=== PATIENT | female | born 1975 | race Caucasian/White ===

== ENCOUNTER 2023-05-31 15:34 | Outpatient (REF) | payer OTHER, SELFPAY ==
--- NOTE | ~2023-05-31 | XR_ITS ---
EXAM: LEFT WRIST X-RAYS CLINICAL INFORMATION: Pain in left wrist. TECHNIQUE: 4 views of the left wrist. FINDINGS: Radiopaque marker placed by the technologist. Mild narrowing of the radiocarpal space. Bone mineralization is normal. Slight cortical step-off at the distal radial aspect of the scaphoid with possibly sclerotic margins may represent a prior fracture versus chronic/degenerative process. Small cystic lucency in the mid body of the scaphoid. Multiple cystic lucencies in the lunate with areas of moderate sclerosis. Mild degenerative changes in the first carpometacarpal joint with joint space narrowing and hypertrophic change. XR/XR wrist LT w scaphoid IMPRESSION: Slight cortical step-off at the distal radial aspect of the scaphoid with possibly sclerotic margins may represent a prior fracture versus chronic/degenerative process. Small cystic lucency in the mid body of the scaphoid. Multiple cystic lucencies in the lunate with areas of moderate sclerosis. Correlation with clinical exam and history recommended to determine further management including possible additional imaging with MRI.
== END 2023-05-31 15:35 | disposition home or self-care (01) ==
LOC: HO.HOSX 15:34
PROVIDERS: PCP Family Medicine; Visit Provider Orthopaedic Surgery
DX: S52.502A Unspecified fracture of the lower end of left radius, initial encounter for closed fracture (principal)
CPT/HCPCS: 73110

== ENCOUNTER 2023-06-22 09:07 | Outpatient (REF) | payer OTHER, SELFPAY ==
--- NOTE | ~2023-06-22 | XR_ITS ---
EXAMINATION: Left rib series CLINICAL INFORMATION: Pain in left wrist COMPARISON: Left wrist series May 2023 TECHNIQUE: 4 views of the left wrist FINDINGS: There is a nondisplaced incomplete transverse fracture through the radial cortex of the metaphysis of the radius. Multiple cysts within the lunate. Surrounding bone and soft tissues XR/XR wrist LT w scaphoid IMPRESSION: Nondisplaced incomplete transverse fracture through the radial cortex of the metaphysis of the radius.
== END 2023-06-22 09:08 | disposition home or self-care (01) ==
LOC: HO.HOSX 09:07
PROVIDERS: Visit Provider Orthopaedic Surgery
DX: M25.532 Pain in left wrist (principal)
CPT/HCPCS: 73110

== ENCOUNTER 2023-06-22 10:24 | Outpatient (AMB) | payer OTHER, SELFPAY ==
[2023-06-22 10:31] VITALS: BMI 23.8
--- NOTE | 2023-06-22 10:31 | MHC.OFFVIS ---
Vital Signs 06/22/23 10:31 Height 5 ft 2 in Weight 130 lb BMI 23.8 Intake Visit Reasons: O/V left radio head fx 05/28/23 Intake Note: Zena 47 yr old female presents today for his follow up visit for his left distal radius fracture from a hyperextension injury from DOI: 05/28/23. Cast removed in office and xrays updated. States he has little soreness due to being in cast. Allergies No Known Allergies Allergy (Verified 06/22/23 10:32) HPI HPI O/V left radio head fx 05/28/23: Details: Zena is a 47-year-old right hand dominant woman who presents for a follow up of a left nondisplaced distal radius fracture. She says she was running an obstacle course and while reaching/jumping out for Monkey bars & hyperextended her wrist, DOI: 05/28/23. Cast was removed in the office today. She states she is doing good. She reports mild stiffness from the cast. She says she is very active and was planning to travel to [place] soon to go trail running. Denies smoking or vaping. 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 Review of Systems Const All systems reviewed & are unremarkable except as noted in HPI and below Physical Exam Vital Signs: BMI result Body Mass Index 23.8 Const General: cooperative, healthy appearing and no acute distress Orientation/consciousness: patient oriented x3 HEENT Head: Yes normocephalic and Yes atraumatic Eyes EOM: EOMs intact bilaterally Resp Effort & Inspection: normal respiratory effort and able to speak in complete sentences Cardio Jugular venous distension: no JVD Skin General skin exam: turgor normal Rashes: no rashes Neuro General: patient oriented x3 Extrem Other: Evaluation of Left Upper Extremity: Patient was alert oriented and in no acute distress Her fracture is now completely nontender to palpation. No tenderness about the ulna or the DRUJ and the DRUJ is stable. No snuffbox or scaphoid tubercle tenderness She has full and symmetrical prono-supination today. Mild stiffness in flexion and extension after being in the cast She can actively make a fist and extend all of her digits. No pain when making a tight fist. Neuro: Median, ulnar, radial nerves motor and sensory intact. Vascular: Cap refill brisk. Radiographs: 3 views of the left small finger were taken and viewed by me today in clinic on 06/22/2023 were reviewed by me in clinic. They show a nondisplaced transverse fracture of the distal radial metaphysis. Satisfactory alignment, no change in alignment compared with previous radiographs. Some evidence of interval bony healing. Assessment & Plan Assessment & Plan (1) Closed fracture of left distal radius: Code(s): S52.502A - Unspecified fracture of the lower end of left radius, initial encounter for closed fracture Category: Medical Plan Assessment & Plan: 1. Left distal radius transverse fracture, through the metaphysis, non-displaced. From a hyperextension injury, DOI: 05/28/23. While reaching for Monkey bars during an obstacle course The patient appears to be doing well. Placed in a off the shelf velcro wrist splint. Able to removed while at home to work on flexion and extension. Exercises demonstrated in the office. Recommend wearing the splint for the next two weeks while awake and then she is able to decrease the amount of time wearing it, only while running and out of the house, for the next 4 weeks. Discussed she is not able to play on monkey bars for at least another 10-12 weeks. Able to go running on only straight and level ground due to lack of bone strength. Follow up will be in 4-6 weeks for a ROM check. Should she have any concerns she can return sooner. If she has no concerns she can cancel the appointment. Scribed by Mira Iyer medical instructor, for Dr. Christina Selby on 06/22/2023 at 10:32 am, EST. Orders: Orders XR wrist LT w scaphoid Today M25.532 - Pain in left wrist Coding Level of Care Code Global (98481) Diagnoses Closed fracture of left distal radius S52.502A
== END 2023-06-22 11:15 | disposition home or self-care (01) ==
PROVIDERS: PCP Family Medicine; Visit Provider Orthopaedic Surgery
DX: S52.502A Unspecified fracture of the lower end of left radius, initial encounter for closed fracture (principal)
CPT/HCPCS: 99024